=== PATIENT | female | born 1945 | race Caucasian/White ===

== ENCOUNTER 2017-01-13 10:30 | Inpatient (IN) | payer MEDICARE ==
[~2017-01-13] VITALS: Ht 170.2 cm; Wt 84.4 kg
[2017-01-13] MEDS ORDERED: BACL-141 PO (10:47)
[2017-01-13] MEDS ORDERED: ARIP2TAB3 PO (10:47)
[2017-01-13] MEDS ORDERED: BUPR-102 PO (10:47)
[2017-01-13] MEDS ORDERED: DONE5TAB33 PO (10:47)
[2017-01-13] MEDS ORDERED: SIMV10TA6 PO (10:52)
[2017-01-13] MEDS ORDERED: CHOL100026 GT (10:52)
[2017-01-13] MEDS ORDERED: POTASSIUM GLUCONATE (10:52)
[2017-01-13] MEDS ORDERED: GABA-531 PO (10:52)
[2017-01-13] MEDS ORDERED: CENTRUM (10:52)
[2017-01-13] MEDS ORDERED: ZOLP5TAB2 PO (10:52)
[2017-01-13] MEDS ORDERED: DANTROLENE (10:52)
[2017-01-13] MEDS ORDERED: SINEMET (10:52)
[2017-01-13] MEDS ORDERED: [UNRECOGNIZED DRUG - OTHER] (10:52)
[2017-01-13] MEDS ORDERED: LORA0.5T2 PO (10:52)
[2017-01-13] MEDS ORDERED: KETOROLAC 30MG/ML VIAL IV STA (11:07)
[2017-01-13] MEDS ORDERED: ACETAMINOPHEN 650MG SUPP PR STA (11:07)
[2017-01-13] MEDS ORDERED: SODIUM CHLORIDE 0.9% 1000ML BAG (SEPSIS BOLUS) IV ONE (11:15)
[2017-01-13] MEDS ORDERED: CEFTRIAXONE 2 G PREMIX 50 ML IV ONE (11:15)
[2017-01-13 11:40] LABS: CLARITY URINE TURBID (CLEAR); COLOR URINE YELLOW (YELLOW); GLUCOSE URINE NEGATIVE (NEGATIVE); KETONES URINE NEGATIVE (NEGATIVE); LEUKOCYTE ESTERASE URINE 3+ (NEGATIVE); NITRITE URINE NEGATIVE (NEGATIVE); OCCULT BLOOD URINE 3+ (NEGATIVE); PH URINE 7.5 (4.5-8.0); PROTEIN URINE 2+ (NEGATIVE); SPECIFIC GRAVITY URINE 1.018 (1.005-1.030); UROBILINOGEN URINE 0.2 E.U./dL (0.2-1.0)
[2017-01-13 11:51] LABS: *AMPHETAMINES SCREEN URINE NEGATIVE (NEGATIVE); *BARBITURATES SCREEN URINE NEGATIVE (NEGATIVE); *BENZODIAZEPINES SCREEN URINE PRESUMTIVE POSITIVE (NEGATIVE); *COCAINE SCREEN URINE NEGATIVE (NEGATIVE); CANNABINOID URINE SCREEN NEGATIVE (NEGATIVE); METHADONE URINE SCREEN NEGATIVE (NEGATIVE); OPIATES URINE SCREEN NEGATIVE (NEGATIVE); PHENCYCLIDINE URINE SCREEN NEGATIVE (NEGATIVE)
[2017-01-13 11:51] LABS: BASOPHILS % 0.3 % (0.0-2.0); HEMATOCRIT. 39.4 % (36.0-48.0); HEMOGLOBIN. 13.3 g/dL (12.0-16.0); LYMPHOCYTES % 8.7 % (20.0-50.0); MEAN PLATELET VOLUME 7.4 fl (7.4-10.4); MONOCYTES % 9.3 % (2.0-8.0); NEUTROPHILS % 81.7 % (40.0-76.0); PLATELET 254 x1000/uL (130-400); RED BLOOD CELL COUNT 4.28 mill/uL (4.2-5.4); RED CELL DISTRIBUTION WIDTH 16.5 % (11.6-14.6)
[2017-01-13 12:05] LABS: INR 1.1; PROTHROMBIN TIME 11.8 sec
[2017-01-13 12:08] LABS: CARBON DIOXIDE 27 mEq/L (21-32); CHLORIDE 104 mEq/L (98-107); ETHANOL BLOOD < 10 mg/dL
[2017-01-13] MEDS ORDERED: SODIUM CHLORIDE 0.9% 1,000 ML IV NR (14:30)
[2017-01-13 16:38] VITALS: BP 132/87
[2017-01-13 16:39] VITALS: BP 132/87
[2017-01-13 18:00] VITALS: BP 115/69
[2017-01-13 19:24] VITALS: BP 137/70
[2017-01-13] MEDS ORDERED: SODIUM CHLORIDE 0.9% 1,000 ML IV SCH (19:30)
[2017-01-13 20:00] VITALS: BP 119/68
[2017-01-13] MEDS: ENOXAPARIN 40MG/0.4ML SYR SUBCUT SCH (20:39)
[2017-01-13 22:00] VITALS: BP 129/82
[2017-01-13] MEDS ORDERED: CLONIDINE 0.1MG TABLET PO PRN (23:15)
[2017-01-13] MEDS ORDERED: ONDANSETRON HCL 4MG/2ML VIAL IV PRN (23:15)
[2017-01-14] VITALS (22 sets, daily range): BP systolic 66–139; BP diastolic 38–73
[2017-01-14] MEDS: DEXT 5%/0.45% NACL 1000ML 1,000 ML IV SCH ×2 (00:13→12:33)
[2017-01-14] MEDS: LEVOFLOXACIN 500MG PREMIX 100 ML IV SCH (00:15)
[2017-01-14] MEDS: ACETAMINOPHEN 650MG/20.3ML UDC GT PRN ×2 (04:31→16:55)
[2017-01-14] MEDS ORDERED: ENOXAPARIN 40MG/0.4ML SYR SUBCUT SCH (09:00)
[2017-01-14] MEDS ORDERED: SODIUM CHLORIDE 0.9% 500 ML IV ONE (10:31)
[2017-01-14] MEDS ORDERED: SODIUM CHLORIDE 0.9% 500 ML IV NR (10:45)
[2017-01-14] MEDS: CHOLECALCIFEROL (D3) 1000 UNIT TABLET GT SCH (11:01)
[2017-01-14] MEDS ORDERED: LORAZEPAM 0.5MG TABLET PO PRN (12:15)
[2017-01-14 12:33] LABS: BASOPHILS % 0.3 % (0.0-2.0); HEMATOCRIT. 34.8 % (36.0-48.0); HEMOGLOBIN. 11.4 g/dL (12.0-16.0); MEAN CORPUSCULAR HEMOGLOBIN 30.7 pg (28.0-32.0); MEAN CORPUSCULAR VOLUME 93.7 fL (81.0-99.0); MEAN PLATELET VOLUME 7.3 fl (7.4-10.4); NEUTROPHILS % 81.7 % (40.0-76.0); PLATELET 207 x1000/uL (130-400); RED BLOOD CELL COUNT 3.72 mill/uL (4.2-5.4); RED CELL DISTRIBUTION WIDTH 16.1 % (11.6-14.6)
[2017-01-14] MEDS: BUPROPION HCL 150MG TABLET XL 24HR PO SCH (12:33)
[2017-01-14] MEDS: CARBIDOPA/LEVODOPA 25/100MG TABLET PO SCH ×3 (12:33→21:40)
[2017-01-14] MEDS ORDERED: BUPROPION HCL 150MG TABLET XL 24HR PO SCH (13:00)
[2017-01-14] MEDS ORDERED: ARIPIPRAZOLE 2MG TABLET PO SCH (13:00)
[2017-01-14 13:03] LABS: CARBON DIOXIDE 22 mEq/L (21-32); CHLORIDE 110 mEq/L (98-107); HDL CHOLESTEROL 46 mg/dL (40-59); LDL CHOLESTEROL 92 mg/dL (5-100)
[2017-01-14] MEDS: ARIPIPRAZOLE 10MG TABLET PO SCH (13:55)
[2017-01-14] MEDS: BACLOFEN 10MG TABLET PO SCH ×2 (13:55→21:40)
[2017-01-14] MEDS: POTASSIUM CHLORIDE 20MEQ TABLET SR PO SCH (13:56)
[2017-01-14] MEDS ORDERED: POTASSIUM CHLORIDE 20MEQ TABLET SR PO ONE (14:00)
[2017-01-14 14:36] LABS: T4 FREE 0.91 ng/dL (0.76-1.46)
[2017-01-14] MEDS ORDERED: MAGNESIUM 2 G PREMIX 50 ML IV NR (16:00)
[2017-01-14] MEDS: SODIUM CHLORIDE 0.45% 1,000 ML IV SCH (20:50)
[2017-01-14] MEDS: ENOXAPARIN 40MG/0.4ML SYR SUBCUT SCH (20:54)
[2017-01-14] MEDS ORDERED: DONEPEZIL HCL 5MG TABLET PO SCH (21:00)
[2017-01-14] MEDS: DONEPEZIL HCL 10MG TABLET PO SCH (21:38)
[2017-01-14] MEDS: GABAPENTIN 300MG CAPSULE PO SCH (21:39)
[2017-01-14] MEDS: SENNOSIDES 8.6MG TABLET PO SCH (21:39)
[2017-01-15] VITALS (14 sets, daily range): BP systolic 108–145; BP diastolic 49–97
[2017-01-15] MEDS: LEVOFLOXACIN 500MG PREMIX 100 ML IV SCH (00:28)
[2017-01-15 06:12] LABS: CARBON DIOXIDE 22 mEq/L (21-32); CHLORIDE 108 mEq/L (98-107)
[2017-01-15] MEDS: BACLOFEN 10MG TABLET PO SCH ×3 (06:21→21:05)
[2017-01-15] MEDS: SODIUM CHLORIDE 0.45% 1,000 ML IV SCH (06:21)
[2017-01-15 06:50] LABS: HEMATOCRIT. 32.5 % (36.0-48.0); HEMOGLOBIN. 10.9 g/dL (12.0-16.0); MEAN CORPUSCULAR HEMOGLOBIN 30.8 pg (28.0-32.0); MEAN CORPUSCULAR VOLUME 92.5 fL (81.0-99.0); MEAN PLATELET VOLUME 8.2 fl (7.4-10.4); PLATELET 198 x1000/uL (130-400); RED BLOOD CELL COUNT 3.52 mill/uL (4.2-5.4)
[2017-01-15] MEDS ORDERED: LEVOTHYROXINE SODIUM 200MCG TABLET PO SCH ×2 (06:50)
[2017-01-15] MEDS ORDERED: POTASSIUM CHLORIDE 20MEQ TABLET SR PO SCH (07:00)
[2017-01-15] MEDS: ARIPIPRAZOLE 10MG TABLET PO SCH (08:01)
[2017-01-15] MEDS: CHOLECALCIFEROL (D3) 1000 UNIT TABLET GT SCH (08:01)
[2017-01-15] MEDS: CARBIDOPA/LEVODOPA 25/100MG TABLET PO SCH ×4 (08:01→20:28)
[2017-01-15] MEDS: BUPROPION HCL 150MG TABLET XL 24HR PO SCH (08:01)
[2017-01-15] MEDS: POTASSIUM CHLORIDE 20MEQ TABLET SR PO SCH (11:41)
[2017-01-15 17:47] LABS: PLATELET ESTIMATE NORMAL
[2017-01-15] MEDS: SENNOSIDES 8.6MG TABLET PO SCH (20:28)
[2017-01-15] MEDS: GABAPENTIN 300MG CAPSULE PO SCH (20:28)
[2017-01-15] MEDS: ENOXAPARIN 40MG/0.4ML SYR SUBCUT SCH (20:29)
[2017-01-15] MEDS: DONEPEZIL HCL 10MG TABLET PO SCH (20:29)
[2017-01-16] VITALS (14 sets, daily range): BP systolic 88–152; BP diastolic 31–96
[2017-01-16] MEDS: LEVOFLOXACIN 500MG PREMIX 100 ML IV SCH (00:01)
[2017-01-16] MEDS: SODIUM CHLORIDE 0.45% 1,000 ML IV SCH (03:48)
[2017-01-16] MEDS: BACLOFEN 10MG TABLET PO SCH ×2 (05:09→13:44)
[2017-01-16 07:10] LABS: BASOPHILS % 0.6 % (0.0-2.0); HEMATOCRIT. 30.5 % (36.0-48.0); HEMOGLOBIN. 10.3 g/dL (12.0-16.0); LYMPHOCYTES % 17.3 % (20.0-50.0); MEAN CORPUSCULAR VOLUME 91.6 fL (81.0-99.0); MEAN PLATELET VOLUME 8.3 fl (7.4-10.4); MONOCYTES % 10.5 % (2.0-8.0); NEUTROPHILS % 70.6 % (40.0-76.0); PLATELET 212 x1000/uL (130-400); RED BLOOD CELL COUNT 3.33 mill/uL (4.2-5.4); RED CELL DISTRIBUTION WIDTH 15.8 % (11.6-14.6)
[2017-01-16 07:53] LABS: CHLORIDE 106 mEq/L (98-107)
[2017-01-16 08:05] LABS: CARBON DIOXIDE 24 mEq/L (21-32)
[2017-01-16] MEDS: POTASSIUM CHLORIDE 20MEQ TABLET SR PO SCH (08:14)
[2017-01-16] MEDS: ARIPIPRAZOLE 10MG TABLET PO SCH (08:15)
[2017-01-16] MEDS: CARBIDOPA/LEVODOPA 25/100MG TABLET PO SCH ×3 (08:15→16:20)
[2017-01-16] MEDS: CHOLECALCIFEROL (D3) 1000 UNIT TABLET GT SCH (08:15)
[2017-01-16] MEDS: BUPROPION HCL 150MG TABLET XL 24HR PO SCH (08:15)
== END 2017-01-16 20:28 | disposition home or self-care (01) | DRG 871 ==
LOC: ER 10:46 → 3WST 15:15 → EDBEDREQ 15:20 → EDBEDREQTM 15:20 → ENRESERV 15:22
PROVIDERS: ADMIT Internal Medicine Nephrology; ATTEND Internal Medicine Nephrology
DX: A41.9 Sepsis, unspecified organism (principal); G93.40 Encephalopathy, unspecified; N39.0 Urinary tract infection, site not specified; E44.0 Moderate protein-calorie malnutrition; G82.20 Paraplegia, unspecified; D64.9 Anemia, unspecified; E03.9 Hypothyroidism, unspecified; E78.00 Pure hypercholesterolemia, unspecified; E78.5 Hyperlipidemia, unspecified; F02.80 Dementia in other diseases classified elsewhere, unspecified severity, without behavioral disturbance, psychotic disturbance, mood disturbance, and anxiety; G30.9 Alzheimer's disease, unspecified; F32.9 Major depressive disorder, single episode, unspecified; G20 Parkinson's disease; G35 Multiple sclerosis; F41.9 Anxiety disorder, unspecified; B96.1 Klebsiella pneumoniae [K. pneumoniae] as the cause of diseases classified elsewhere; B96.4 Proteus (mirabilis) (morganii) as the cause of diseases classified elsewhere; L89.629 Pressure ulcer of left heel, unspecified stage; M21.371 Foot drop, right foot; M21.372 Foot drop, left foot; Z74.01 Bed confinement status; Z85.43 Personal history of malignant neoplasm of ovary; Z90.710 Acquired absence of both cervix and uterus; Z88.0 Allergy status to penicillin; Z79.899 Other long term (current) drug therapy; Z68.29 Body mass index [BMI] 29.0-29.9, adult
CPT/HCPCS: 36415; 51702; 70450; 71010; 80048; 80053; 80061; 80305; 81001; 82962; 83036; 83605; 83735; 84439; 84443; 84481; 85025; 85610; 87040; 87077; 87086; 87186; 87493; 93005; 93970; 96361; 96365; 96366; 96375; 97162; 97165; 99291; G0482; J0696; J1650; J1885; J1956; J3475; J3490; J7030; J7040; J7050; A4315